=== PATIENT | male | born 1950 | race Caucasian/White ===

== ENCOUNTER → 2016-07-15 | Outpatient (CLI) | payer MEDICARE ==
[~2016-07-15] MED LIST: AMLODIPINE-BENA1 CAP PO; BLOOD PRESSURE PO; IBUPROFEN600 MG PO; MOBIC15 MG PO; TRAMADOL HCL50 M1 PO
== END | disposition home or self-care (01) ==
LOC: CLAB 11:37
DX: T81.89XA Other complications of procedures, not elsewhere classified, initial encounter (principal)
CPT/HCPCS: 36415; 85652; 86140

== ENCOUNTER 2016-08-06 18:19 | Emergency (ER) | payer MEDICARE ==
--- NOTE | ~2016-08-06 | MR18 ---
[facility] A Service of [facility] RADIOLOGY TEXT RESULTS PATIENT: DEV FITZGERALD LOCATION: [facility] : 50 UNIT #: [id number] AGE: [address]: Bhavik Neves DO SEX: M ORDER DR: [id number] [facility] [address] [place], [place] [address] [id number] E MR#: [id number] Acc #: [id number] NAME: DEV FITZGERALD : 1950 SEX: M STUDY DATE/TIME: 08/06/2016 19:22 UNIT: PRAKASH ROOM: STUDY DESCRIPTION: MR Brain Wo Contrast Attending Physician: Bhavik Neves D.O. Ordering Physician: Bhavik Neves D.O. Primary Care Physician: Bryan Mcmanus M.D. MRI CENTER REPORT This report is preliminary unless electronic signature is present. EXAM MR brain. DATE OF EXAM 08/06/2016 INDICATIONS Left upper extremity weakness for 1 month, worse over the last week. Patient cannot views left arm. No known trauma. History of hypertension and smoking. TECHNIQUE Multisequence, multiplanar imaging was performed through the brain without contrast in a high field strength magnet. COMPARISON No comparison. FINDINGS There is some motion degradation. Diffusion imaging reveals no acute or subacute ischemic change. There is generalized atrophy somewhat out of proportion to age. Ventricular size configuration are within normal limits. Chronic small vessel ischemic changes are present in the white matter. No masses are identified. There is no evidence of hemorrhage. Major intracranial flow voids are maintained. Craniovertebral junction is normal. There is partial opacification of right side mastoid air cells which could reflect mastoiditis. Correlate clinically. IMPRESSION Motion degraded exam, but there are no acute findings in the brain. There is no evidence of acute or subacute stroke, and there is no hemorrhage. There is atrophy out of proportion to patient age and there is mild chronic small vessel ischemic disease in the white matter. There is some [facility] A Service of [facility] RADIOLOGY TEXT RESULTS PATIENT: DEV FITZGERALD LOCATION: [facility] : 50 UNIT #: [id number] AGE: [address]: Bhavik Neves DO SEX: M ORDER DR: fluid signal and mastoid air cells on the right side which could reflect a mild degree of mastoiditis. Dictated by... Josse Pascual Jr., M.D. THIS IS AN ELECTRONICALLY VERIFIED REPORT Josse Pascual Jr., M.D. at 08/06/2016 11:06 PM CORTNEY/zachery TD: 08/06/2016 21:20 JOB #: [id number] MRI CENTER REPORT Page 1 of 1 COPY
--- NOTE | ~2016-08-06 | US140 ---
[facility] A Service of [facility] RADIOLOGY TEXT RESULTS PATIENT: DEV FITZGERALD LOCATION: [facility] : 50 UNIT #: [id number] AGE: [address]: Bhavik Neves DO SEX: M ORDER DR: [id number] [facility] [address] [place], [place] [address] [id number] E MR#: [id number] Acc #: [id number] NAME: DEV FITZGERALD. : 1950 SEX: M STUDY DATE/TIME: 08/06/2016 16:46 UNIT: PRAKASH ROOM: STUDY DESCRIPTION: US UE Veins Unilat or Ltd Stdy Attending Physician: Bhavik Neves D.O. Ordering Physician: Bhavik Neves D.O. Primary Care Physician: Bryan Mcmanus M.D. MEDICAL IMAGING REPORT This report is preliminary unless electronic signature is present EXAM Left upper extremity duplex Doppler venous ultrasound COMPARISON None INDICATIONS 66-year-old male with left arm pain radiating from the shoulder inferiorly for approximately 5 days. Left hip surgery in June. History of hypertension. FINDINGS There is no evidence of deep venous thrombosis in the lower left neck or left upper extremity. No evidence of superficial venous thrombosis. IMPRESSION No evidence of venous thrombosis in the left upper extremity. Dictated by... Keenan Mcdaniel M.D. THIS IS AN ELECTRONICALLY VERIFIED REPORT Keenan Mcdaniel M.D. at 08/11/2016 5:33 PM CASSIDY/zan TD: 08/06/2016 18:54 JOB #: [id number] MEDICAL IMAGING REPORT Page 1 of 1 COPY
--- NOTE | ~2016-08-06 | MR31 ---
[facility] A Service of [facility] RADIOLOGY TEXT RESULTS PATIENT: DEV FITZGERALD LOCATION: [facility] : 50 UNIT #: [id number] AGE: [address]: Bhavik Neves DO SEX: M ORDER DR: [id number] [facility] [address] [place], [place] [address] [id number] E MR#: [id number] Acc #: [id number] NAME: DEV FITZGERALD. : 1950 SEX: M STUDY DATE/TIME: 08/06/2016 19:22 UNIT: [facility] ROOM: STUDY DESCRIPTION: MR Cervical WWo Contrast Attending Physician: Bhavik Neves D.O. Ordering Physician: Bhavik Neves D.O. Primary Care Physician: Bryan Mcmanus M.D. MRI CENTER REPORT This report is preliminary unless electronic signature is present. EXAM Cervical spine MRI with and without contrast 08/06/2016 HISTORY Neck pain and left arm weakness for 1 month particularly worsened for 1 week and now with flaccid left arm paralysis. PROCEDURE Cervical spine MR with and without contrast. FINDINGS There is a midcervical reversal of lordosis and there is marked marrow edema involving the C4 and C5 vertebral bodies. There is spinal prevertebral soft tissue edema as well though a discrete paraspinous or intraspinous fluid collection is not seen. Postcontrast images shows marked enhancement in the C4 and C5 vertebral bodies and in the prevertebral soft tissues and in the anterior epidural soft tissues. There is cord compression with abnormal T2 signal in the cord centered at C4-5 but extending from about mid C3 down to at least the level of the C5-6 disc. There is enhancement in the posterior paraspinous soft tissues as well. Cord signal above and below the level of compression is normal. Normal flow voids are seen in the carotid and vertebral arteries. IMPRESSION Abnormal exam. Findings suggest cervical osteomyelitis diskitis. There is anterior epidural phlegmon, but little if any definite abscess. It is possible that there is a tiny roseanna fluid collection behind the C5 vertebral body 8 or 9 mm in length and perhaps 2 or 3 mm in AP diameter but it is not certain that that is actually roseanna fluid but there is certainly phlegmon and cord compression extending from about [id number] STS. [facility] A Service of [facility] & [facility] RADIOLOGY TEXT RESULTS PATIENT: DEV FITZGERALD LOCATION: [facility] : 50 UNIT #: [id number] AGE: [address]: Bhavik Neves DO SEX: M ORDER DR: C3 to at least The C5-6 disc. There is anterior and posterior paraspinal inflammatory change, again likely primarily phlegmon. There is marked cord compression and there is abnormal cord signal at the compressed levels noted above, though cord signal above and below those levels is normal. Dictated by... Dennis De Leon M.D. THIS IS AN ELECTRONICALLY VERIFIED REPORT Dennis De Leon M.D. at 08/11/2016 10:37 AM HONORIO/donnell TD: 08/07/2016 07:51 JOB #: [id number] MRI CENTER REPORT Page 1 of 1 COPY
[2016-08-06 16:30] LABS: BASOPHIL# 0.1 X10e3 (0-0.3); BASOPHIL% 1.1 % (0-2.5); EOSINOPHIL# 0.3 X10e3 (0-0.7); EOSINOPHIL% 3.3 % (0.0-7.0); HEMATOCRIT 23.6 % (38.0-50.0); HEMOGLOBIN 8.1 gm/dL (13.0-16.0); LYMPHOCYTE# 1.5 X10e3 (1.0-3.5); LYMPHOCYTE% 15.5 % (17.0-45.0); MEAN CELL VOLUME 89.7 FL (83-96); MEAN CORPUSCULAR HEMOGLOBIN 30.7 PG (28-34); MEAN CORPUSCULAR HGB CONC 34.2 g/dL (30-36); MEAN PLATELET VOLUME 7.5 FL (6.5-11.5); MONOCYTE# 1.5 X10e3 (0-1.0); MONOCYTE% 15.6 % (3.0-12.0); NEUTROPHIL# 6.2 X10e3 (1.5-7.1); NEUTROPHIL% 64.5 % (40-75); PLATELET COUNT 524 X10e3 (140-420); RED BLOOD COUNT 2.63 X10e (3.90-5.60); RED CELL DISTRIBUTION WIDTH 14.7 % (11.0-15.5); WHITE BLOOD COUNT 9.6 X10e3 (4.0-10.5)
[2016-08-06 16:34] LABS: DIFF IND NO
[2016-08-06 16:48] LABS: CALCIUM SERUM 9.4 mg/dL (8.4-10.2); CREATININE SERUM 1.7 mg/dL (0.6-1.4); GLOM FILT RATE Estimated 41.1 mL/min (>60); POTASSIUM 5.1 mmol/L (3.5-5.1)
[2016-08-06 16:57] LABS: INR 1.1; PARTIAL THROMBOPLASTIN TIME 29.2 SECONDS (23.5-31.3); PROTHROMBIN TIME (PATIENT) 11.2 SECONDS (9.6-11.5)
== END 2016-08-06 22:22 | disposition hospice, home (50) ==
LOC: CED 18:19
PROVIDERS: Emergency Medicine
DX: G06.2 Extradural and subdural abscess, unspecified (principal); H66.90 Otitis media, unspecified, unspecified ear; F17.200 Nicotine dependence, unspecified, uncomplicated; Z88.2 Allergy status to sulfonamides
CPT/HCPCS: 36415; 70551; 72156; 80048; 85025; 85610; 85730; 93971; 96374; 96375; 99285; A9577; J0696; J2270; J2405; J3370